=== PATIENT | female | born 1940 | race Caucasian/White ===

== ENCOUNTER 2018-10-23 17:08 | Emergency (ER) | payer OTHER ==
[~2018-10-23] VITALS: Ht 154.9 cm; Wt 75.3 kg
[2018-10-23] MEDS ORDERED: PEPCID20 MG (17:14)
[2018-10-23] MEDS ORDERED: PLAVIX75 MG (17:15)
[2018-10-23] MEDS ORDERED: NORVASC5 MG (17:15)
[2018-10-23] MEDS ORDERED: ATENOLOL25 MG (17:15)
== END 2018-10-23 20:14 | disposition home or self-care (01) ==
LOC: ER 17:08
DX: M79.18 Myalgia, other site (principal)